=== PATIENT | male | born 1965 | race Caucasian/White ===

== ENCOUNTER → 2017-12-15 | Outpatient (CLI) | payer OTHER | LOC: BMCIMAGING 08:44 | PROVIDERS: ATTEND Family Medicine | DX: S02.40EA Zygomatic fracture, right side, initial encounter for closed fracture (principal) ==

== ENCOUNTER 2017-12-18 08:29 | Emergency (ER) | payer OTHER ==
[2017-12-18 08:36] VITALS: O2SAT 97
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
[2017-12-18 10:05] VITALS: BP 129/76; PULSE 51; RESP 12; TEMP 98.2
== END 2017-12-18 10:04 | disposition home or self-care (01) ==
DX: S09.90XA Unspecified injury of head, initial encounter (principal); S02.40EA Zygomatic fracture, right side, initial encounter for closed fracture; V10.4XXA Pedal cycle driver injured in collision with pedestrian or animal in traffic accident, initial encounter; Y92.410 Unspecified street and highway as the place of occurrence of the external cause; Y99.8 Other external cause status; Y93.55 Activity, bike riding

== ENCOUNTER 2017-12-27 11:58 | Day surgery (SDC) | payer OTHER ==
[2017-12-27] MEDS ORDERED: LR 1,000 ML IV ONE (12:22)
[2017-12-27] MEDS ORDERED: LIDOCAINE 1% 2 ML INJ ID PRN (12:22)
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
[2017-12-27 12:31] VITALS: PULSE 54
[2017-12-27] MEDS ORDERED: BALANCED SALT IRRIG SOLN 15 ML OPHT.BTL ONE (12:54)
[2017-12-27] MEDS ORDERED: BACITRACIN OPHTHALMIC OINTMENT ONE (12:54)
[2017-12-27] MEDS ORDERED: OXYMETAZOLINE 30 ML NASAL SPRAY ONE (12:55)
[2017-12-27] MEDS ORDERED: LIDOCAINE 1% 300 MG/30 ML SDV ONE ×2 (12:55→14:11)
[2017-12-27] MEDS ORDERED: ceFAZolin 3 GM in D5W 100 ML IV ONE (13:20)
--- NOTE | 2017-12-27 13:22 | PDHPUP ---
History & Physical Update H&P update statement: This history and physical update is based on an assessment of the patient which was completed after admission or registration (within 24 hours), but prior to the surgery/procedure. H&P update: H&P reviewed & patient examined, no change in patient's condition since H&P completed
[2017-12-27] MEDS ORDERED: MIDAZOLAM 2 MG/2 ML VIAL IVP ONE (14:23)
[2017-12-27] MEDS ORDERED: ceFAZolin 2 GM/SWFI 2 GM/20 ML SYR IVP ONE (15:00)
[2017-12-27] MEDS ORDERED: fentaNYL 100 MCG/2 ML INJ ONE (16:01)
[2017-12-27] MEDS ORDERED: PROPOFOL 200 MG/20 ML VIAL ONE (16:01)
[2017-12-27] MEDS ORDERED: LIDOCAINE 2% 100 MG/5 ML SYR ONE (16:02)
[2017-12-27] MEDS ORDERED: ROCURONIUM 50 MG/5 ML VIAL ONE (16:02)
[2017-12-27] MEDS ORDERED: MIDAZOLAM 2 MG/2 ML VIAL ONE (16:50)
[2017-12-27] MEDS ORDERED: BACITRACIN ZINC 14.2 GM OINTTUBE TP ONE (17:34)
[2017-12-27] MEDS ORDERED: HYDROCODONE/APAP 5/325 TAB PO PRN ×2 (18:01→18:03)
--- NOTE | 2017-12-27 18:01 | POSTOPPROG ---
Post Op Note Date of Operation: 12/27/17 Surgeon: Victor M Gibbons Anesthesia: GET(General Endotracheal) Pre-op Diagnosis: R Zygomatic arch fracture Post-op Diagnosis: R Zygomatic arch fracture Indication: R Zygomatic arch fracture Procedure: OR R Zygomatic arch fracture Findings: R Zygomatic arch fracture Inf/Abcess present in the surg proc area at time of surgery?: No Depth: Deep Incisional (Fascial) EBL: Minimal
[2017-12-27] MEDS ORDERED: ACETAMINOPHEN 500 MG TAB PO PRN (18:03)
[2017-12-27] MEDS ORDERED: NALOXONE HCL 0.4 MG/ML INJ IVP PRN (18:03)
[2017-12-27] MEDS ORDERED: oxyCODONE IR 5 MG TAB PO PRN (18:03)
[2017-12-27] MEDS ORDERED: fentaNYL 100 MCG/2 ML INJ IVP PRN (18:03)
--- NOTE | 2017-12-27 18:03 | POSTANESTH ---
Post Anesthetic Evaluation Cardiovascular Status: Normal, Stable, Similar to Pre-Op Cond Respiratory Status: Normal, Stable, Similar to Pre-op Cond. Level of Consciousness/Mental Status: Can Participate in Eval, Alert and Oriented Pain Control: Adequate, Prn Tx Ordered Nausea/Vomiting Control: Adequate, Prn Tx Ordered Complications Possibly Related to Anesthesia: None Noted
[2017-12-27 18:36] VITALS: RESP 14
[2017-12-27 19:22] VITALS: BP 134/90; TEMP 97.5; O2SAT 94
== END 2017-12-27 19:21 | disposition home or self-care (01) ==
LOC: FSGY 11:58
PROVIDERS: ATTEND Otolaryngology
PROC: 0NSM0ZZ Reposition Right Zygomatic Bone, Open Approach (ICD-10-PCS; principal; 2017-12-27 13:30)
DX: S02.40EA Zygomatic fracture, right side, initial encounter for closed fracture (principal); V19.88XA Pedal cyclist (driver) (passenger) injured in other specified transport accidents, initial encounter
CPT/HCPCS: J0171; J0690; J2001; J2250; J2704; J3010